=== PATIENT | male | born 1985 | race Caucasian/White ===

== ENCOUNTER 2019-01-23 18:25 | Emergency (ER) | payer MEDICAID ==
[~2019-01-23] VITALS: Ht 167.6 cm; Wt 83.9 kg
[2019-01-23 18:40] VITALS: BP 129/89
--- NOTE | 2019-01-23 18:43 | NUR ---
TRIAGE COMPLETE. VSS. OKAY TO WAIT IN LOBBY FOR BED IN ED.
--- NOTE | 2019-01-23 20:45 | NUR ---
PT AMBULATED TO BED 09.
--- NOTE | 2019-01-23 21:05 | NUR ---
ERMD AT BEDSIDE.
[2019-01-23] MEDS ORDERED: KETOROLAC 60 MG/2 ML VIAL IM ONE (21:20)
--- NOTE | 2019-01-23 21:22 | NUR ---
33 Y/O MALE C/O INTERMITTENT L FLANK PAIN TO BACK X 1 DAY. A/OX4 ABLE TO FOLLOW COMMANDS. PAIN IS A 10/10 ACUTE SHARP PAIN. PATIENT STATED THAT HE HAD MUSCLE PAIN EARLIER. NO PAIN UPON PALPATION. HE TOOK IBUPROFEN PRIOR COMING TO THE ER. ERMD MADE AWARE OF STATUS. [id number]. PMH: NONE RX NONE NKDA
[2019-01-23 21:50] VITALS: BP 129/89
--- NOTE | 2019-01-23 21:50 | NUR ---
Patient discharged with v/s stable. Written and verbal after care instructions given and explained. Patient alert, oriented and verbalized understanding of instructions. Ambulatory with steady gait. All questions addressed prior to discharge. ID band removed. Patient advised to follow up with PMD. Rx of ROBAXIN 500MG; MOTRIN 800MG given. Patient educated on indication of medication including possible reaction and side effects. Opportunity to ask questions provided and answered.
== END 2019-01-23 21:50 | disposition home or self-care (01) ==
LOC: MED 18:25
DX: S39.012A Strain of muscle, fascia and tendon of lower back, initial encounter (principal); X50.0XXA Overexertion from strenuous movement or load, initial encounter; X50.9XXA Other and unspecified overexertion or strenuous movements or postures, initial encounter; Y93.89 Activity, other specified; Y92.89 Other specified places as the place of occurrence of the external cause; Y99.0 Civilian activity done for income or pay
CPT/HCPCS: 96372; 99283; J1885

== ENCOUNTER 2019-01-27 21:17 | Emergency (ER) | payer MEDICAID ==
[~2019-01-27] VITALS: Ht 177.8 cm; Wt 87.1 kg
[2019-01-27 21:36] VITALS: BP 137/89
--- NOTE | 2019-01-27 21:46 | NUR ---
PT AMBULATED TO WITH STEADY GAIT TO COLLECT URINE SAMPLE. PT INSTRUCTED TO RETURN TO LOBBY. AWAITING AVAILABLE BED.
--- NOTE | 2019-01-27 22:52 | NUR ---
PT AMBULATED TO BED 09.
[2019-01-27] MEDS ORDERED: NACL 0.9% 1,000 ML IV SCH (23:12)
[2019-01-27] MEDS ORDERED: KETOROLAC 60 MG/2 ML VIAL IM ONE (23:15)
[2019-01-27] MEDS ORDERED: KETOROLAC 30 MG/ML VIAL IVP ONE (23:15)
--- NOTE | 2019-01-27 23:15 | NUR ---
33 Y/O MALE PRESENTS TO ED, C/O LOWER BACK PAIN 09/12. PT STATES BEING D/C FROM ED ONE WEEK AGO AND WAS RX MEDICATIONS. PT STATES MEDICATIONS WILL BE EFFECTIVE BUT PAIN WILL PRESENT AGAIN. PAIN CAN BE MILD TO SEVERE INTERMITTENTLY. LAST TIME PT TOOK PAIN MEDICATIONS WAS AT 1800 TODAY. PT ABLE TO AMBULATE WITH SLOW STEADY GAIT. PT VSS. ERMD AWARE. WILL CONTINUE TO MONITOR.
--- NOTE | 2019-01-27 23:19 | NUR ---
PT TAKEN TO CT VIA WC.
[2019-01-27 23:46] LABS: BASOPHILS % (AUTO) 0.4 % (0.0-2.0); EOSINOPHILS # (AUTO) 0.2 K/uL (0-0.4); EOSINOPHILS % (AUTO) 1.7 % (0.0-4.0); HEMATOCRIT 40.2 % (36-52); HEMOGLOBIN 14.2 g/dL (12.0-18.0); LYMPHOCYTES # (AUTO) 2.3 K/uL (2.0-11.5); LYMPHOCYTES % (AUTO) 22.4 % (20.5-51.1); MEAN CORPUSCULAR HEMOGLOBIN 31 pg (27-31); MEAN CORPUSCULAR HGB CONC 35 g/dL (33-37); MEAN CORPUSCULAR VOLUME 86.6 fL (80-94); MONOCYTES # (AUTO) 0.8 K/uL (0.8-1.0); MONOCYTES % (AUTO) 7.8 % (1.7-9.3); NEUTROPHILS % (AUTO) 67.7 % (42.2-75.2); PLATELET COUNT (AUTO) 261 K/uL (140-450); RED BLOOD CELL COUNT(AUTO) 4.65 MIL/uL (4.20-6.10); RED CELL DISTRIBUTION WIDTH 12.1 % (11.6-13.7); WHITE BLOOD COUNT (AUTO) 10.4 K/uL (4.8-10.8)
[2019-01-27 23:47] LABS: APPEARANCE,URINE CLEAR (CLEAR); BILIRUBIN,URINE NEGATIVE (NEGATIVE); BLOOD, URINE 3+ (NEGATIVE); COLOR,URINE YELLOW (YELLOW); LEUKOCYTE ESTERASE ,URINE NEGATIVE (NEGATIVE); NITRITE, URINE NEGATIVE (NEGATIVE); PH,URINE 5.5 (5.0-9.0); UGLUCOSE NEGATIVE (NEGATIVE)
[2019-01-28 00:01] LABS: RBC,URINE TOO NUMEROUS TO COUN /HPF (0-5)
[2019-01-28 00:01] LABS: ANION GAP 11.9 (8-16); CARBON DIOXIDE 28.1 mmol/L (21-32); CREATININE 1.1 mg/dL (0.7-1.3)
[2019-01-28 00:07] LABS: ALBUMIN 4.2 g/dL (3.4-5.0); TOTAL BILIRUBIN 0.6 mg/dL (0.0-1.0)
[2019-01-28 01:20] VITALS: BP 132/81
--- NOTE | 2019-01-28 01:20 | NUR ---
PT DISCHARGED WITH PAPERWORK. RX FLOMAX, MOTRIN, NORCO. EDUCATED PT REGARDING MEDICATIONS AND S/E. EDUCATED PT REGARDING D/C DIAGNOSIS AND INSTRUCTIONS. PT VERBALIZED UNDERSTANDING OF TEACHING. TOLD PT TO FOLLOW UP WITH PCP AND WHEN TO RETURN TO ED. PT VSS. ALL QUESTIONS ANSWERED.
== END 2019-01-28 01:20 | disposition home or self-care (01) ==
LOC: MED 21:17
DX: N20.0 Calculus of kidney (principal)
CPT/HCPCS: 36415; 74176; 80053; 81001; 83690; 85025; 87086; 96374; 99284; J1885; J7030